=== PATIENT | female | born 1960 | race Caucasian/White ===

== ENCOUNTER → 2019-01-16 08:32 | Outpatient (CLI) | payer OTHER, SELFPAY ==
[2019-01-02 15:09] VITALS: BMI 30.5
--- NOTE | 2019-01-16 08:35 | ECHOCS_ITS ---
Reason For Study: Chest Pain Procedure This was a 2D Doppler, Color Flow transthoracic echocardiogram. The study was technically difficult. Due to diminished acoustic windows. Contrast injection was performed. Exam performed in department. Left Ventricle Normal LV size. The estimated ejection fraction is 50-55 %. Diastolic function is indeterminate. Infero-Basal: Hypokinetic. Right Ventricle Normal RV size. Normal systolic function. Atria Normal left atrium. Normal right atrium. No doppler evidence for ASD. Mitral Valve There is no mitral valve stenosis. Trivial mitral valve insufficiency. Tricuspid Valve There is no tricuspid stenosis. Pulmonary artery systolic pressure is 30 mmHg. Trivial tricuspid valve insufficiency. Aortic Valve Trisinus/trileaflet aortic valve. There is no aortic stenosis. Mild (1+) aortic valve insufficiency. Pulmonic Valve There is no pulmonic valvular stenosis. No pulmonic valve insufficiency. Great Vessels Normal aortic root. Pericardium/Pleural No pericardial effusion. Medication 22 gauge I.V. with prn adaptor inserted into right arm. Diluted definity 2.5ml given slow IV push to enhance endocardial definition. MMode/2D Measurements & Calculations LVIDd: 5.0 cm IVSd: 0.94 cm Ao root diam: 3.3 cm LVIDs: 3.7 cm LVPWd: 0.88 cm RVDd: 2.6 cm FS: 25.3 % LAV(MOD-bp): 32.1 ml LA A4 area: 11.7 cm2 LA dimension(2D): 3.2 cm LAV(MOD-bp) Indexed: 18.1 ml/m2 LAV(MOD-sp2): 33.5 ml LAV(MOD-sp4): 28.0 ml RA A4 area: 9.7 cm2 Doppler Measurements & Calculations Lat Peak E' Alonso: 8.9 cm/sec Med Peak E' Alonso: 3.9 cm/sec Ao V2 max: 102.3 cm/sec Ao max P.2 mmHg AI max alonso: 418.8 cm/sec LV V1 max: 92.7 cm/sec PA V2 max: 67.8 cm/sec AI max P.2 mmHg LV V1 max P.4 mmHg AI dec slope: 165.5 cm/sec2 AI P1/2t: 741.3 msec TR max alonso: 224.4 cm/sec TR max P.5 mmHg Interpretation Summary The study was technically difficult. Diluted definity 2.5ml given slow IV push to enhance endocardial definition. The estimated ejection fraction is 50-55 %. Diastolic function is indeterminate. Infero-Basal: Hypokinetic Pulmonary artery systolic pressure is 30 mmHg. Mild (1+) aortic valve insufficiency. Trivial mitral valve insufficiency. The study was technically difficult. Ordering Physician: Nagajothi, Nagapradee Referring Physician: Nathaly Cervantes Performed By: Eleonora Romero, NELLY, RVT
== END ==
PROVIDERS: Family Provider Nurse Practitioner Primary Care; PCP Nurse Practitioner Primary Care; Referring Provider Specialist; Visit Provider Specialist
DX: R07.9 Chest pain, unspecified (principal)
CPT/HCPCS: 93306; Q9957; A4216; C8929

== ENCOUNTER → 2020-05-09 11:09 | Outpatient (CLI) | payer OTHER, SELFPAY ==
[2020-05-09 10:13] VITALS: BMI 32.3
[2020-05-09 11:43] LABS: Absolute Lymphocyte Count 2.29 X10^3/uL (0.83-4.51); Absolute Neutrophil Count 4.8 X10^3/uL (2.0-7.7); Basophil# 0.05 X10^3/uL; Basophil% 0.6 % (0-1); Eosinophil# 0.24 X10^3/uL; Hematocrit 45.1 % (37-47); Hemoglobin 14.9 g/dL (12.0-15.0); Lymphocyte # 2.29 X10^3/ul (4.0); Lymphocyte % 29.1 % (19-41); Mean Corpuscular Hgb 30.4 pg (27.0-32.0); Mean Platelet Vol. 10.5 fl (6.2-12.0); Monocyte% 6.3 % (0-10); NRBC Flagged by Analyzer 0 % (0-5); Neutrophil # 4.78 X10^3/uL (2.7-7.7); Neutrophil % 60.7 % (47-70); Platelet Count 317 K/mm3 (150-450); RBC Distribution Width CV 13.2 % (11.6-14.6); RBC Distribution Width SD 44.5 fl (35.1-43.9); White Blood Count 7.9 K/mm3 (4.4-11.0)
[2020-05-09 12:42] LABS: ALB/GLOB Ratio 0.9 RATIO (0.9-2.4); AST(SGOT) 25 U/L (15-37); Alanine Aminotransfer ALT/SGPT 49 U/L (13-56); Albumin, Serum 3.7 g/dL (3.2-5.0); Alkaline Phosphatase 107 U/L (45-117); Anion Gap 6 (5-15); BUN 14 mg/dL (7-18); BUN/Creat Ratio 16.9 RATIO (10-20); Bilirubin, Direct 0.08 mg/dL (0.00-0.30); Calcium,Total 9.3 mg/dL (8.5-10.1); Chloride 105 mmol/L (98-107); Cholesterol 131 mg/dL (200); Creatinine, Serum 0.83 mg/dL (0.55-1.02); EST Glomerular Filtration Rate 74 mL/min (>60); Est Glom Filt Rate - Afr Amer 90 mL/min (>60); Globulin 3.9 g/dL (2.2-4.2); Glucose 80 mg/dL (74-106); High Density Lipoprotein 46 mg/dL; Potassium 3.7 mmol/L (3.5-5.1); Protein, Total 7.6 g/dL (6.4-8.2); Sodium Level 140 mmol/L (136-145); Triglycerides 193 mg/dL; Very Low Density Lipoprotein 39 mg/dL (5-40)
== END ==
PROVIDERS: Physician Assistant Medical; PCP Nurse Practitioner Primary Care; Referring Provider Specialist; Visit Provider Specialist
DX: I25.10 Atherosclerotic heart disease of native coronary artery without angina pectoris (principal); R06.00 Dyspnea, unspecified; I10 Essential (primary) hypertension
CPT/HCPCS: 36415; 80053; 80061; 82248; 85025

== ENCOUNTER → 2020-06-13 06:51 | Outpatient (CLI) | payer OTHER, SELFPAY ==
[2020-05-09 10:13] VITALS: BMI 32.3
--- NOTE | 2020-06-13 08:45 | RAD_ITS ---
STUDY: X-RAY CHEST REASON FOR EXAM: Female, 59 years old. Shortness of breath TECHNIQUE: PA and lateral views of the chest. COMPARISON: None. FINDINGS: The lungs are clear and expanded. There is no demonstrated pleural abnormality. Normal size heart. Normal mediastinum and javier. Normal visualized pulmonary arteries. Normal visualized aortic arch and descending thoracic aorta. Normal visualized thoracic spine. Normal visualized ribs, clavicles, and shoulders. There is no demonstrated abnormality of the visualized soft tissue structures of the upper abdomen. RAD/Chest PA and Lateral IMPRESSION: Normal x-ray examination of the chest. Electronically Signed: Dony Alatorre MD at 11:10 EST Tel , Service support ,
--- NOTE | 2020-06-13 14:44 | STRESSREP_ITS ---
Stress Test Report Date: 06/13/2020 Procedure: Exercise tolerance test/imaging study Indications: Dyspnea on exertion Consent: Per the patient Procedure: The patient exercised on a Bryan protocol for 4 minutes and 45 seconds achieving a peak heart rate of 146 bpm (91% predicted maximal heart rate) with a peak blood pressure 142/70 mmHg and a peak MET capacity of 6.7 METs. The baseline ECG demonstrated normal sinus rhythm, prior inferior and lateral ME. The peak exercise ECG demonstrated no significant ischemic changes. EKG during recovery revealed no significant ischemic changes [There were no cardiac dysrhythmias pretest, during exercise, or recovery]. The functional capacity was considered normal for age. There was [no complaint of chest discomfort during exercise or recovery]. The examination was discontinued secondary to dyspnea. Impression: 1. Technically adequate (percent predicted maximal heart rate greater than 85%) exercise tolerance test 2. Stress test is negative for exercise-induced EKG changes of ischemia 3. The test test is negative for exercise-induced chest pain 4. Functional capacity is normal for age 5. Nuclear images pending Myocardial perfusion imaging study: Technique: The patient was injected with 11.4 mCi of technetium 99m Cardiolite and subsequently rest SPECT Cardiolite nuclear imaging was obtained in the horizontal long, vertical long, and short axis views. The patient exercised on a Brayn protocol. Please see above for details. The patient was injected with 36 mCi of technetium 99m Cardiolite and subsequently stress SPECT Cardiolite nuclear imaging was obtained in the horizontal long, vertical long, and short axis views. A gated Cardiolite study at peak stress was obtained. Interpretation: Rest and stress SPECT Cardiolite nuclear imaging status post realignment, normalization, and attenuation correction, demonstrates absent radioisotope uptake in the inferior wall in both the rest and stress images suggestive of prior inferior myocardial infarction. There are no significant reversible defects suggestive of significant ischemia the gated Cardiolite study demonstrates no significant regional wall motion abnormalities. The reported LVEF is 66%. Impression: 1. There is no evidence of significant ischemia. 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 2. The gated Cardiolite study reports an LVEF of 66%. This note was generated with [employer] software. It may contain incorrect words, spelling, and punctuation that were not noted in checking the note before signing.
== END ==
PROVIDERS: PCP Nurse Practitioner Primary Care; Referring Provider Physician Assistant Medical; Visit Provider Physician Assistant Medical
DX: I25.10 Atherosclerotic heart disease of native coronary artery without angina pectoris (principal); I10 Essential (primary) hypertension; R06.00 Dyspnea, unspecified
CPT/HCPCS: 71046; 78452; 93017; A9500; A4216